=== PATIENT | female | born 1930 | race Caucasian/White ===

== ENCOUNTER 2016-12-14 12:45 | Emergency (ER) | payer OTHER ==
[2016-12-14 13:07] VITALS: TEMP 97.7; BMI 18.8
[2016-12-14] MEDS ORDERED: DIPHTH,PERTUSS(ACELL),TET 0.5 ML DISP.SYRIN IM ONE (13:10)
--- NOTE | 2016-12-14 14:07 | PDOC ---
*Physical Exam - Vital Signs Last Vital Signs Temp Pulse Resp BP Pulse Ox 97.7 F 81 18 158/68 100 12/14/16 13:01 12/14/16 13:01 12/14/16 13:01 12/14/16 13:01 12/14/16 13:01 ED Treatment Course - Medications Given in the ED: ED Medications Discontinued Medications Generic Name Dose Route Start Last Admin Trade Name Cassandra PRN Reason Stop Dose Admin Diphtheria/Tetanus/Acell Pertussis 0.5 ml 12/14/16 13:10 12/14/16 13:24 Boostrix - IM 12/14/16 13:11 0.5 ml .ONCE ONE Administration Medical Decision Making - Medical Decision Making 12/14/16 14:07 Pt seen by Midlevel Provider under my direct supervision Pt interviewed and examined Ancillary studies reviewed I agree with plan as outlined by Midlevel Provider *DC/Admit/Observation/Transfer Diagnosis at time of Disposition: Fall, Closed head injury, Scalp laceration - Discharge Dispostion Disposition: HOME - Referrals Referrals: STAFF,NOT ON [Primary Care Provider] - - Patient Instructions Printed Discharge Instructions: DI for Closed Head Injury Additional Instructions: -Keep the scalp clean and dry today -After that, you can wash gently with soap and water and pat dry -Apply bacitracin ointment once daily -Return here or see your primary care doctor in 3-5 days to have the marlena removed -Return sooner for redness/pus around the wound, fever, severe headache, nausea/ vomiting, change in vision, change in behavior/awareness, or any other concerning symptoms
--- NOTE | 2016-12-14 16:05 | PDOC ---
History of Present Illness - General Chief Complaint: Head/Neck problem Stated Complaint: FALL Time Seen by Provider: 12/14/16 12:51 History Source: Patient Exam Limitations: No Limitations - History of Present Illness Initial Comments: 12/14/16 16:05 CHIEF COMPLAINT: Fall HISTORY OF PRESENT ILLNESS: This is an 86 year old female with a history of HTN , depression, and CVA, on ASA 81mg daily (no other antiplatelets or anticoagulants) brought in by her aide after a fall. The aide reports that she heard a fall, and immediately found the patient awake on the floor. The patient has some expressive aphasia, but is able to give a history. She states that she fell from one step onto the floor, striking her head. She denies LOC, dizziness , nausea, visual changes, neck pain, or any other symptoms. She reports that she slipped and denies any dizziness, near syncope, or chest pain prior to the fall. Vital signs on arrival are notable for mild HTN at 158 systolic. REVIEW OF SYSTEMS: GENERAL/CONSTITUTIONAL: No fever or chills. No weakness. No weight change. HEAD, EYES, EARS, NOSE AND THROAT: No change in vision. No ear pain or discharge. No sore throat. CARDIOVASCULAR: No chest pain or palpitations. RESPIRATORY: No cough, wheezing, or shortness of breath. GASTROINTESTINAL: No nausea, vomiting, diarrhea or constipation. GENITOURINARY: No dysuria, frequency, or change in urination. MUSCULOSKELETAL: No joint or muscle swelling or pain. No neck or back pain. SKIN: No rash or easy bruising. NEUROLOGIC: No headache, vertigo, loss of consciousness, or loss of sensation. PSYCHIATRIC: No depression or anxiety. ENDOCRINE: No increased thirst. No abnormal weight change. HEMATOLOGIC/LYMPHATIC: No anemia, easy bleeding, or history of blood clots. ALLERGIC/IMMUNOLOGIC: No hives or skin allergy. No latex allergy. PHYSICAL EXAM: GENERAL: The patient is awake, alert, oriented x 2, in no acute distress. HEAD: 2.5 cm linear posterior scalp laceration. ENT: Pupils equal, round and reactive to light, extraocular movements intact, sclera anicteric, conjunctiva clear. Neck supple. LUNGS: Clear to auscultation bilaterally. Normal excursion. No respiratory distress or use of accessory muscles. CV: RRR, S1/S2, no MRG. Cap refill < 2 sec. ABDOMEN: Soft, non-distended, non-tender. EXTREMITIES: Normal range of motion of ankle, knee, hip, wrist, elbow, and shoulder joints. NEUROLOGICAL: Mild expressive aphasia. Normal speech, normal gait with assistance. CN II-XII grossly intact. PSYCH: Normal mood, normal affect. SKIN: Warm, dry, normal turgor, no rashes or lesions noted. Past History - Past Medical History Allergies/Adverse Reactions: Allergies Allergy/AdvReac Type Severity Reaction Status Date / Time Sulfa (Sulfonamide Allergy Severe Verified 12/14/16 13:00 Antibiotics) Home Medications: Ambulatory Orders Amlodipine Besylate 5 mg PO DAILY 12/14/16 Aspirin [ASA -] 81 mg PO DAILY 12/14/16 Lisinopril [Prinivil] 20 mg PO DAILY 12/14/16 Paroxetine HCl 20 mg PO DAILY 12/14/16 HTN: Yes Psychiatric Problems: Yes (MAJOR DEPRESSIVE DISORDER, GEN ANXIETY DISORDER) Other medical history: OSTEOPOROSIS - Psycho/Social/Smoking Cessation Hx Suicidal Ideation: No Smoking History: Never smoked *Physical Exam - Vital Signs Last Vital Signs Temp Pulse Resp BP Pulse Ox 97.7 F 81 18 158/68 100 12/14/16 13:01 12/14/16 13:01 12/14/16 13:01 12/14/16 13:01 12/14/16 13:01 Procedures - Laceration/Wound Repair Posterior Head Wound Length: to 2.5 cm Wound Explored: clean, no foreign body present Wound's Depth, Shape: into muscle, linear Irrigated w/ Saline: Yes Betadine Prep: Yes Wound Repaired With: [place] Number of Sutures: 6 ED Treatment Course - RADIOLOGY Radiology Studies Ordered: Category Date Time Status CERVICAL SPINE CT W/O CONTR [CT] Stat CT Scan 12/14/16 13:[address] WITHOUT CONTRAST [CT] Stat CT Scan 12/14/16 13:11 Completed - Medications Given in the ED: ED Medications Discontinued Medications Generic Name Dose Route Start Last Admin Trade Name Freq PRN Reason Stop Dose Admin Diphtheria/Tetanus/Acell Pertussis 0.5 ml 12/14/16 13:10 12/14/16 13:24 Boostrix - IM 12/14/16 13:11 0.5 ml .ONCE ONE Administration Medical Decision Making - Medical Decision Making 12/14/16 16:30 A/P: 86 year old female s/p mechanical fall with head trauma. 1. Head and C-spine CTs 2. Wound irrigation and laceration repair 3. Patient denies pain *DC/Admit/Observation/Transfer Diagnosis at time of Disposition: Fall Qualifiers: Encounter type: initial encounter Qualified Code(s): W19.XXXA - Unspecified fall, initial encounter Closed head injury Qualifiers: Encounter type: initial encounter Qualified Code(s): S09.90XA - Unspecified injury of head, initial encounter Laceration of scalp Qualifiers: Encounter type: initial encounter Qualified Code(s): S01.01XA - Laceration without foreign body of scalp, initial encounter - Discharge Dispostion Disposition: HOME Condition at time of disposition: Stable Admit: No - Patient Instructions Printed Discharge Instructions: DI for Closed Head Injury Additional Instructions: -Keep the scalp clean and dry today -After that, you can wash gently with soap and water and pat dry -Apply bacitracin ointment once daily -Return here or see your primary care doctor in 3-5 days to have the marlena removed -Return sooner for redness/pus around the wound, fever, severe headache, nausea/ vomiting, change in vision, change in behavior/awareness, or any other concerning symptoms
[2016-12-14 17:04] VITALS: BP 144/79; PULSE 74
== END 2016-12-14 17:04 | disposition home or self-care (01) ==
LOC: JER 12:45
PROC: 0HQ0XZZ Repair Scalp Skin, External Approach (ICD-10-PCS; principal; 2016-12-14)
PROC: 3E0234Z Introduction of Serum, Toxoid and Vaccine into Muscle, Percutaneous Approach (ICD-10-PCS; 2016-12-14)
DX: S01.01XA Laceration without foreign body of scalp, initial encounter (principal); W10.8XXA Fall (on) (from) other stairs and steps, initial encounter; Y93.89 Activity, other specified; Y92.018 Other place in single-family (private) house as the place of occurrence of the external cause; I10 Essential (primary) hypertension; F41.1 Generalized anxiety disorder; I69.920 Aphasia following unspecified cerebrovascular disease
CPT/HCPCS: 70450-TC; 72125-TC; 90715; 99284-25

== ENCOUNTER 2017-03-18 13:47 | Emergency (ER) | payer OTHER ==
[2017-03-18 14:28] VITALS: TEMP 98.5; BMI 17.9
--- NOTE | 2017-03-18 15:19 | PDOC ---
History of Present Illness <Janett Pires - Last Filed: 03/18/17 16:04> - General History Source: Patient, EMS, Other (skilled nursing case manager) Exam Limitations: No Limitations, Dementia (and aphasia) - History of Present Illness Initial Comments: 03/18/17 15:17 This 86yo F with a significant PMHx of a fall December 2016 s/p sutures on skull, primary aphasia and HTN presents due to a fall at 1:15 pm today. 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 She denies lightheadedness or dizziness before the event, denies syncope or LOC before or after event, and states she remembers the entirety of the event. States she fell backwards and hit her head against a granite and vinyl floor. Pt and executive director of nursing deny anti-coagulation use. Endorses long standing dizziness on exertion. Denies MURRY, lightheadedness, dizziness, vision changes, N/V, CP, new cough, palpitations, dysuria or pain on urination. Denies surgical hx. Denies tobacco or alcohol use. Occurred: reports: just prior to arrival Severity: reports: moderate Pain Location: reports: head Method of Injury: Yes: fall Loss of Consciousness: no loss of consciousness Associated Symptoms (Fall): headache (immediately after event), lightheadedness (immediately after event) <John Newton - Last Filed: 03/24/17 07:31> - General Chief Complaint: Injury Stated Complaint: FALL Time Seen by Provider: 03/18/17 14:33 Past History <Janett Pires - Last Filed: 03/18/17 16:04> - Travel Traveled outside of the country in the last 30 days: No Close contact w/someone who was outside of country & ill: No - Past Medical History HTN: Yes Psychiatric Problems: Yes (MAJOR DEPRESSIVE DISORDER, GEN ANXIETY DISORDER) Other medical history: EXPRESSIVE APHASIA. - Psycho/Social/Smoking Cessation Hx Anxiety: No Suicidal Ideation: No Smoking History: Never smoked Hx Alcohol Use: No Drug/Substance Use Hx: No Substance Use Type: None <John Newton - Last Filed: 03/24/17 07:31> - Past Medical History Allergies/Adverse Reactions: Allergies Allergy/AdvReac Type Severity Reaction Status Date / Time Sulfa (Sulfonamide Allergy Severe Verified 03/20/17 16:05 Antibiotics) Home Medications: Ambulatory Orders Amlodipine Besylate 5 mg PO DAILY 12/14/16 Aspirin [ASA -] 81 mg PO DAILY 12/14/16 Lisinopril [Prinivil] 20 mg PO DAILY 12/14/16 Paroxetine HCl 20 mg PO DAILY 12/14/16 Cephalexin Monohydrate [Keflex -] 500 mg PO BID #14 capsule 03/18/17 Trauma Specific PMHX - Complaint Specific PMHX Arthritis: Yes Back Injury: No Neck Injury: No Hx Sacro Iliac Joint Dysfunction: No <John Newton - Last Filed: 03/24/17 07:31> Review of Systems - Review of Systems Able to Perform ROS?: Yes Is the patient limited Cuban proficient: No Constitutional: No: Chills, Diaphoresis, Fever, Loss of Appetite, Weakness HEENTM: No: Eye Pain, Blurred Vision, Recent change in vision, Double Vision Respiratory: No: Cough, Shortness of Breath, SOB with Exertion, SOB at Rest, Wheezing, Productive cough Cardiac (ROS): Yes: Lightheadedness. No: Chest Pain, Irregular Heart Rate, Palpitations, Syncope, Chest Tightness ABD/GI: No: Constipated, Diarrhea, Nausea, Vomiting : No: Burning, Dysuria, Discharge, Frequency, Incontinence Musculoskeletal: Yes: Joint Pain Neurological: No: Headache (only after fall), Numbness, Paresthesia, Seizure <John Newton - Last Filed: 03/24/17 07:31> *Physical Exam - Vital Signs Last Vital Signs Temp Pulse Resp BP Pulse Ox 98.5 F 75 18 166/69 98 03/18/17 14:23 03/18/17 14:23 03/18/17 14:23 03/18/17 14:23 03/18/17 14:23 <Janett Pires - Last Filed: 03/18/17 16:04> - Vital Signs Last Vital Signs Temp Pulse Resp BP Pulse Ox 98.5 F 75 18 166/69 98 03/18/17 14:23 03/18/17 14:23 03/18/17 14:23 03/18/17 14:23 03/18/17 14:23 - Physical Exam General Appearance: Yes: Appropriately Dressed. No: Intoxicated HEENT: positive: EOMI, YUKI, Hearing Grossly Normal, Other (Parietal scalp laceration 6cm x 1cm.). negative: Pale Conjunctivae, Scleral Icterus (R), Scleral Icterus (L) Respiratory/Chest: positive: Lungs Clear, Normal Breath Sounds. negative: Respiratory Distress, Accessory Muscle Use, Rapid RR, Crackles, Rales, Rhonchi, Stridor, Wheezing, Dullness Cardiovascular: positive: Regular Rhythm, Regular Rate, S1, S2. negative: Murmur, Diastolic Murmur, Systolic Murmur, Irregularly Irregular, Irregular Gastrointestinal/Abdominal: positive: Normal Bowel Sounds, Flat, Soft. negative : Guarding, Rebound, Tenderness Musculoskeletal: positive: Normal Inspection. 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 negative: Facial Droop, Disoriented, Depressed Affect <John Newton - Last Filed: 03/24/17 07:31> Procedures - Laceration/Wound Repair Upper Medial Head Wound Length: 2.6 to 5.0 cm Wound Explored: clean, no foreign body present Wound's Depth, Shape: linear (Galea is not intact) Irrigated w/ Saline: Yes Betadine Prep: No (150mL normal saline irrigation) Anesthesia: 1% Lidocaine w/ Epi Wound Debrided: moderate Wound Repaired With: Sutures, Daniella Suture Size/Type: 4:0 Number of Sutures: 3 Layer Closure: Yes Deep Layer Suture Size/Type: 4:0, vycril Number of Deep Layer Sutures: 3 (4:0 vycril) Sterile Dressing Applied: Yes Splint Applied: No Sling Applied: No <John Newton - Last Filed: 03/24/17 07:31> Heart Score/ECG Review #1 ECG reviewed & interpreted by me at: 16:04 General ECG Interpretation: Sinus Rhythm, Normal Rate, Normal Intervals, No acute ischemic changes <Janett Pires - Last Filed: 03/18/17 16:04> #1 General ECG Interpretation: Sinus Rhythm, Normal Rate, Normal Intervals, No acute ischemic changes - ECG Impressions Normal ECG: Yes <John Newton - Last Filed: 03/24/17 07:31> ED Treatment Course - LABORATORY CBC & Chemistry Diagram: 03/18/17 15:16 03/18/17 15:16 - ADDITIONAL ORDERS Additional order review: 03/18/17 15:16 RBC 3.25 L MCV 96.4 H MCHC 34.0 RDW 13.8 MPV 7.8 Neutrophils % 73.5 Lymphocytes % 14.5 Monocytes % 7.3 Eosinophils % 2.8 Basophils % 1.9 - RADIOLOGY Radiology Studies Ordered: Category Date Time Status HEAD CT WITHOUT CONTRAST [CT] Stat CT Scan 03/18/17 13:55 Completed <Janett Pires - Last Filed: 03/18/17 16:04> - LABORATORY CBC & Chemistry Diagram: 03/18/17 18:55 03/18/17 15:16 <John Newton - Last Filed: 03/24/17 07:31> Medical Decision Making - Medical Decision Making 03/18/17 15:29 This 86yo F pt with a past medical hx of primary aphasia, HTN and fall in December 2016 s/p sutures presents to due a mechanical fall earlier today without LOC. Scalp Laceration 2/2 mechanical fall -CBC, CMP, PT/INR -CT head negative for intracranial hemorrhage or hematoma, acute CVA, or skull fracture noted -Boostrix given in this ER December 2016 -will wash out and staple wound R/O cardiac arrhythmia -EKG, troponin r/o UTI -Urinalysis 03/18/17 18:37 Laceration is fixed with deep sutures and daniella. Will repeat CBC to check Hgb. 03/18/17 19:05 I will give 1G Ancef in the ER and have d/c with 500 mg BID of keflex. <John Newton - Last Filed: 03/24/17 07:31> *DC/Admit/Observation/Transfer <Janett Pires - Last Filed: 03/18/17 16:04> - Attestations Physician Attestion: 03/24/17 07:25 I, Dr. John Newton, attest that this document has been prepared under my direction and personally reviewed by me in its entirety. I further attest, that it accurately reflects all work, treatment, procedures and medical decision -making performed by me. <John Newton - Last Filed: 03/24/17 07:31> Diagnosis at time of Disposition: Laceration - injury - Discharge Dispostion Disposition: HOME Condition at time of disposition: Stable - Prescriptions Prescriptions: Cephalexin Monohydrate [Keflex -] 500 mg PO BID #14 capsule - Referrals Referrals: Janae Lang MD [Primary Care Provider] - - Patient Instructions Printed Discharge Instructions: DI for Laceration Repair Additional Instructions: Keep area clean and dry for next 48 hours. Sutures to be removed in 14 days.
[2017-03-18 15:47] LABS: BASOPHIL 1.9 % (0-2.0); EOSINOPHIL 2.8 % (0-4.5); MCH 32.8 pg (25.7-33.7); MEAN CELL VOLUME 96.4 fl (80-96); MEAN PLT VOLUME 7.8 fl (7.5-11.1); NEUTROPHILS 73.5 % (42.8-82.8); PLATELET COUNT 199 K/MM3 (134-434); RDW 13.8 % (11.6-15.6); WHITE BLOOD COUNT 5.7 K/mm3 (4.0-10.0)
[2017-03-18 16:08] LABS: ALBUMIN 3.7 g/dl (3.4-5.0); ANION GAP 9 (8-16); BILIRUBIN,TOTAL 0.4 mg/dL (0.2-1.0); CO2 30 mmol/L (21-32); CREATININE 0.7 mg/dL (0.55-1.02); GLUCOSE,RANDOM 120 mg/dL (74-106); SGOT/AST 24 U/L (15-37); SGPT/ALT 22 U/L (12-78); TOT PROT 6.9 g/dl (6.4-8.2)
[2017-03-18 16:11] LABS: ALK PHOS 102 U/L (45-117); CPK 62 IU/L (26-192); TROPONIN I < 0.02 ng/ml (0.00-0.05)
[2017-03-18 16:44] LABS: INR 1.04 (0.82-1.09); PROTHROMBIN TIME (PATIENT) 11.5 SEC (9.98-11.88)
[2017-03-18] MEDS ORDERED: BACITRACIN 0.9 GM PACKET ONE (18:50)
[2017-03-18] MEDS ORDERED: CEFAZOLIN 1 GM in DEXTROSE 5%-WATER - 50 ML IVPB ONE (18:54)
[2017-03-18] MEDS ORDERED: CEFAZOLIN (PRE-DOCKED) 50 ML IVPB ONE (18:57)
[2017-03-18 19:01] LABS: MCH 33.3 pg (25.7-33.7); MCHC 34.8 g/dl (32.0-36.0); MEAN CELL VOLUME 95.6 fl (80-96); MEAN PLT VOLUME 7.7 fl (7.5-11.1); PLATELET COUNT 214 K/MM3 (134-434); WHITE BLOOD COUNT 7.8 K/mm3 (4.0-10.0)
--- NOTE | 2017-03-18 19:01 | PDOC ---
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 Pt states she slipped on water and fell and struck her head No preceding chest pain, shortness of breath, palpitations Patient's sustained a large, deep laceration to the top of her head. - Physicial Exam PE: 03/18/17 19:00 On examination: 10 cm Lac to the top of head Skull visible Galea injured RRR CTA - Medical Decision Making 03/18/17 19:00 Will do basic labs Tetanus UTD Galea repaired Scalp stapled Will discharge to home with pain medications 03/18/17 19:01 Laboratory Tests 03/18/17 03/18/17 15:16 15:16 WBC 5.7 Hgb 10.7 Hct 31.3 L Plt Count 199 BUN 24 H Creatinine 0.7 Creatine Kinase 62 Troponin I < 0.[address] Newton after copious irrigation Pt to be discharged to home if Hgb stable Tetanus UTD PT d/c on abx
[2017-03-18 19:53] VITALS: BP 150/64; PULSE 65
--- NOTE | 2017-03-18 20:52 | EKG ---
Test Reason : Blood Pressure : / mmHG Vent. Rate : 064 BPM Atrial Rate : 064 BPM P-R Int : 150 ms QRS Dur : 072 ms QT Int : 422 ms P-R-T Axes : 068 044 067 degrees QTc Int : 435 ms NORMAL SINUS RHYTHM NORMAL ECG NO PREVIOUS ECGS AVAILABLE CLINICAL CORRELATION IS RECOMMENDED Confirmed by REBECA JOYA MD ([id number]) on 03/18/2017 8:51:56 PM Referred By: Confirmed By:REBECA JOYA MD
== END 2017-03-18 20:26 | disposition home or self-care (01) ==
LOC: JER 13:47 → SUPCPDRO 13:47 → JER 20:26
PROC: 0JQ00ZZ Repair Scalp Subcutaneous Tissue and Fascia, Open Approach (ICD-10-PCS; principal; 2017-03-18)
PROC: 3E03329 Introduction of Other Anti-infective into Peripheral Vein, Percutaneous Approach (ICD-10-PCS; 2017-03-18)
DX: S01.01XA Laceration without foreign body of scalp, initial encounter (principal); W01.198A Fall on same level from slipping, tripping and stumbling with subsequent striking against other object, initial encounter; Z91.81 History of falling; Y93.H2 Activity, gardening and landscaping; Y92.007 Garden or yard of unspecified non-institutional (private) residence as the place of occurrence of the external cause; I10 Essential (primary) hypertension; R47.01 Aphasia; F33.9 Major depressive disorder, recurrent, unspecified; F41.1 Generalized anxiety disorder; M19.90 Unspecified osteoarthritis, unspecified site; Z88.2 Allergy status to sulfonamides; Z79.82 Long term (current) use of aspirin
CPT/HCPCS: 36415; 70450-TC; 80053; 84484; 85025; 85027; 85610; 93005; 93010; 99284-25

== ENCOUNTER 2017-03-20 16:04 | Emergency (ER) | payer OTHER ==
[2017-03-20 16:10] VITALS: BP 143/72; PULSE 71; TEMP 98; BMI 18.8
[2017-03-20] MEDS ORDERED: ACETAMINOPHEN 325 MG TABLET (FP) PO ONE (16:50)
--- NOTE | 2017-03-20 16:50 | PDOC ---
History of Present Illness - General Chief Complaint: Injury Stated Complaint: PCP SENT/ FALL INJURY Time Seen by Provider: 03/20/17 16:21 History Source: Patient, Other (home care scheduler) - History of Present Illness Occurred: reports: other Severity: reports: moderate Upper Extremity Pain Location: right: hand, wrist Method of Injury: reports: fell Past History - Past Medical History Allergies/Adverse Reactions: Allergies Allergy/AdvReac Type Severity Reaction Status Date / Time Sulfa (Sulfonamide Allergy Severe Verified 03/20/17 16:05 Antibiotics) Home Medications: Ambulatory Orders Amlodipine Besylate 5 mg PO DAILY 12/14/16 Aspirin [ASA -] 81 mg PO DAILY 12/14/16 Lisinopril [Prinivil] 20 mg PO DAILY 12/14/16 Paroxetine HCl 20 mg PO DAILY 12/14/16 Cephalexin Monohydrate [Keflex -] 500 mg PO BID #14 capsule 03/18/17 HTN: Yes Psychiatric Problems: Yes (MAJOR DEPRESSIVE DISORDER, GEN ANXIETY DISORDER) - Psycho/Social/Smoking Cessation Hx Anxiety: No Suicidal Ideation: No Smoking History: Never smoked Information on smoking cessation initiated: No Hx Alcohol Use: No Drug/Substance Use Hx: No Substance Use Type: None Review of Systems - Review of Systems Constitutional: No: Chills, Fever ABD/GI: No: Nausea, Vomiting Musculoskeletal: Yes: Joint Pain, Joint Swelling Neurological: No: Headache, Dizziness *Physical Exam - Vital Signs Last Vital Signs Temp Pulse Resp BP Pulse Ox 98.0 F 71 18 143/72 100 03/20/17 16:07 03/20/17 16:07 03/20/17 16:07 03/20/17 16:07 03/20/17 16:07 - Physical Exam General Appearance: Yes: Appropriately Dressed. No: Apparent Distress HEENT: positive: Normal Voice, Other (well healing scalp lac) Respiratory/Chest: negative: Respiratory Distress Extremity: positive: Other (swellign w/ ecchymosis to dorsum of R hand and wrist difusely extending into volar aspect of forearm, no snuffbox ttp, NVI) Integumentary: positive: Dry, Warm Neurologic: positive: Fully Oriented, Alert, Normal Mood/Affect Procedures - Splinting Splint Location: Right: Wrist Pre-Proc Neuro Vasc Exam: normal Hand-Made Type: orthoglass Splint Type: Yes: Sugar Tong Post-Proc Neuro Vasc Exam: normal [place] Bandage: 2", 4" Sling: Yes ED Treatment Course - RADIOLOGY Radiology Studies Ordered: Category Date Time Status WRIST W/HAND-RIGHT* [RAD] Stat Radiology 03/20/17 16:43 Ordered Medical Decision Making - Medical Decision Making 03/20/17 16:45 86 yo F, h/o HTN, here w/ pain and swelling to R hand/wrist s/p fall 2 days ago. Pt was seen in the ED here at [facility] for mechanical fall. Had CTH which was normal and had deep scalp laceration repaired. On keflex at home. States she was not experiencing any significant pain or swelling of her wrist so never reported wrist injury. Since home, symptoms have worsen. States no increased pain to lac site and no MURRY, dizziness, n/v. Not on blood thinners See exam R/o wrist fx s/p mec fall 2 days ago CTH in ED 2 days ago normal and s/p lac repair w/ well healing wound on wound check today -pain control -XR 03/20/17 17:29 Small avulsion fx to distal radius on XR. Case d/w Dr Acevedo who recommend sugar tong splint and for pt to f/u in 1 week. Marci Watkins ([phone]), the lead case manager at [facility], called to inform me that pt does not have 24 hr care at facility and that she would not be a safe discharge given that she is now wearing a splint to one arm. I told lead case manager that I will discuss this with ED SW and have SW contact her . 03/20/17 18:37 03/20/17 18:48 After further discussion with facility, ED psych social worker informed me that arrangement for visiting nurse will be set up for pt at home. SW supervisor forming and tempering and lead case manager at pt's facility aware. Pt safe to go home w/ discharge plan in place *DC/Admit/Observation/Transfer Diagnosis at time of Disposition: Wrist fracture Qualifiers: Encounter type: initial encounter Fracture type: closed Laterality: right Qualified Code(s): S62.101A - Fracture of unspecified carpal bone, right wrist, initial encounter for closed fracture - Discharge Dispostion Disposition: HOME Condition at time of disposition: Good - Referrals Referrals: STAFF,NOT ON [Primary Care Provider] - Sae Acevedo MD [Staff Physician] - - Patient Instructions Printed Discharge Instructions: Wrist Fracture Additional Instructions: You have a chip fracture of your right wrist that will heal on its own but can take several weeks A sugar tong splint was placed in ED. Please do not remove splint and follow up with Dr Acevedo of orthopedics next week Wear splint to assist you with elevating arm above your heart to help relieve swelling Take tylenol as needed for pain Our ED psych social worker was able to arrange a visiting nurse to come to your home to assist you as your arm heals
[2017-03-20] MEDS ORDERED: ACETAMINOPHEN 325 MG TABLET (FP) ONE (16:58)
== END 2017-03-20 18:51 | disposition home or self-care (01) ==
LOC: JERFT 16:04
PROC: 2W3CX1Z Immobilization of Right Lower Arm using Splint (ICD-10-PCS; principal; 2017-03-20)
DX: S62.101A Fracture of unspecified carpal bone, right wrist, initial encounter for closed fracture (principal); W18.30XA Fall on same level, unspecified, initial encounter; Y93.9 Activity, unspecified; Y92.9 Unspecified place or not applicable; I10 Essential (primary) hypertension; F33.9 Major depressive disorder, recurrent, unspecified; F41.1 Generalized anxiety disorder; Z79.82 Long term (current) use of aspirin; Z88.2 Allergy status to sulfonamides
CPT/HCPCS: 73110-TC-RT; 73130-TC-RT; 99281-25

== ENCOUNTER 2017-09-06 13:33 | Emergency (ER) | payer OTHER ==
--- NOTE | 2017-09-06 13:45 | PDOC ---
History of Present Illness - General History Source: Patient Exam Limitations: No Limitations - History of Present Illness Initial Comments: 09/06/17 14:08 The patient is a 87-year-old female with a significant past medical history of HTN, primary aphasia, and CVA, who presents to the emergency department with head injury s/p mechanical fall this afternoon at her birthday celebration. As per the patients friend, the patient tripped on her shoelaces and hit her head on the tile floor. Patient presents with a laceration to her right forehead that is not actively bleeding upon interview. As per friend, the patient had some wine today but is at her baseline mental status. Patient is a poor historian secondary to her condition. Tetanus is UTD. The patient denies chest pain, leg swelling. shortness of breath, and dizziness. Denies LOC or syncope. The patient denies fever, chills, nausea, vomit, diarrhea and constipation. The patient denies dysuria, frequency, urgency and hematuria. Allergies: sulfa Social History: No toxic habits reported <Jen Marx - Last Filed: 09/06/17 14:18> <Skyler Diallo - Last Filed: 09/06/17 16:01> <Breonna Yates - Last Filed: 09/06/17 16:51> - General Chief Complaint: Injury Stated Complaint: FALL Time Seen by Provider: 09/06/17 13:44 Past History <Jen Marx - Last Filed: 09/06/17 14:18> <Skyler Diallo - Last Filed: 09/06/17 16:01> - Past Medical History HTN: Yes Psychiatric Problems: Yes (MAJOR DEPRESSIVE DISORDER, GEN ANXIETY DISORDER) - Suicide/Smoking/Psychosocial Hx Smoking History: Never smoked Hx Alcohol Use: No Drug/Substance Use Hx: No Substance Use Type: None <Breonna Yates - Last Filed: 09/06/17 16:51> - Past Medical History Allergies/Adverse Reactions: Allergies Allergy/AdvReac Type Severity Reaction Status Date / Time Sulfa (Sulfonamide Allergy Severe Verified 09/06/17 13:53 Antibiotics) Home Medications: Ambulatory Orders Amlodipine Besylate 5 mg PO DAILY 12/14/16 Aspirin [ASA -] 81 mg PO DAILY 12/14/16 Lisinopril [Prinivil] 20 mg PO DAILY 12/14/16 Paroxetine HCl 20 mg PO DAILY 12/14/16 Review of Systems - Review of Systems Able to Perform ROS?: Yes Comments:: 09/06/17 14:14 GENERAL/CONSTITUTIONAL: No fever or chills. No weakness. HEAD, EYES, EARS, NOSE AND THROAT: No change in vision. No ear pain or discharge. No sore throat. (+) Head laceration. CARDIOVASCULAR: No chest pain or shortness of breath. RESPIRATORY: No cough, wheezing, or hemoptysis. GASTROINTESTINAL: No nausea, vomiting, diarrhea or constipation. GENITOURINARY: No dysuria, frequency, or change in urination. MUSCULOSKELETAL: No joint or muscle swelling or pain. No neck or back pain. SKIN: No rash NEUROLOGIC: No vertigo, loss of consciousness, or change in strength/sensation. ENDOCRINE: No increased thirst. No abnormal weight change. HEMATOLOGIC/LYMPHATIC: No anemia, easy bleeding, or history of blood clots. ALLERGIC/IMMUNOLOGIC: No hives or skin allergy. <Jen Marx - Last Filed: 09/06/17 14:18> *Physical Exam - Vital Signs Last Vital Signs Temp Pulse Resp BP Pulse Ox 97.6 F 72 18 150/52 100 09/06/17 13:47 09/06/17 13:47 09/06/17 13:47 09/06/17 13:47 09/06/17 13:47 - Physical Exam Comments: 09/06/17 14:18 GENERAL: Awake, alert, and fully oriented, in no acute distress HEAD: (+) Jagged stellate laceration to right forehead with avulsion to some skin. EYES: PERRLA, EOMI, sclera anicteric, conjunctiva clear ENT: Auricles normal inspection, hearing grossly normal, nares patent, oropharynx clear without exudates. Moist mucosa NECK: Normal ROM, supple, no lymphadenopathy, JVD, or masses LUNGS: Breath sounds equal, clear to auscultation bilaterally. No wheezes, and no crackles HEART: Regular rate and rhythm, normal S1 and S2, no murmurs, rubs or gallops ABDOMEN: Soft, nontender, normoactive bowel sounds. No guarding, no rebound. No masses EXTREMITIES: Normal range of motion, no edema. No clubbing or cyanosis. No cords, erythema, or tenderness. No lower extremity ttp. NEUROLOGICAL: No stepoffs or deformities, no midline deformities. (+) Left paraspinal ttp. Cranial nerves II through XII grossly intact. SKIN: Warm, Dry, normal turgor, no rashes or lesions noted. <Jen Marx - Last Filed: 09/06/17 14:18> - Vital Signs Last Vital Signs Temp Pulse Resp BP Pulse Ox 97.6 F 72 18 150/52 100 09/06/17 13:47 09/06/17 13:47 09/06/17 13:47 09/06/17 13:47 09/06/17 13:47 <Skyler Diallo - Last Filed: 09/06/17 16:01> Procedures - Laceration/Wound Repair Right Anterior Head Wound Length: 2.6 to 5.0 cm Wound Explored: clean, no foreign body present Wound's Depth, Shape: superficial, irregular, flap, stellate Irrigated w/ Saline: Yes Betadine Prep: No Anesthesia: 1% Lidocaine w/ Epi Wound Debrided: moderate Wound Repaired With: Sutures Suture Size/Type: 5:0 Number of Sutures: 9 Layer Closure: No Deep Layer Suture Size/Type: 5:0 Sterile Dressing Applied: Yes Splint Applied: No Sling Applied: No <Skyler Diallo - Last Filed: 09/06/17 16:01> ED Treatment Course - Medications Given in the ED: ED Medications Discontinued Medications Generic Name Dose Route Start Last Admin Trade Name Freq PRN Reason Stop Dose Admin Diphtheria/Tetanus/Acell Pertussis 0.5 ml 09/06/17 13:52 09/06/17 14:14 Boostrix - IM 09/06/17 13:53 0.5 ml .ONCE ONE Administration <Skyler Diallo - Last Filed: 09/06/17 16:01> Medical Decision Making - Medical Decision Making 09/06/17 13:54 a/p: 87yo female with mechanical fall-trip over shoelaces while at her birthday libertarian -hit the front of her head laceration to R forehead, on asa 81 no other anticoagulants no cantu at baseline MS no facial ttp no cervical spine midline ttp will obtain head and c spine ct will suture laceration unsure last tetanus - will update today 09/06/17 15:[address] Diallo - was present during procedure 09/06/17 16:49 cts without acute findings given po in the ED stable for d/c to home <Breonna Yates - Last Filed: 09/06/17 16:51> *DC/Admit/Observation/Transfer - Attestations Scribe Attestion: 09/06/17 14:19 Documentation prepared by Jen Marx, acting as medical records coder for Breonna Yates DO, MD/. <Jen Marx - Last Filed: 09/06/17 14:18> <Skyler Diallo - Last Filed: 09/06/17 16:01> - Discharge Dispostion Admit: No - Attestations Physician Attestion: 09/06/17 16:51 I, Dr. Breonna Yates DO, attest that this document has been prepared under my direction and personally reviewed by me in its entirety. I further attest, that it accurately reflects all work, treatment, procedures and medical decision -making performed by me. <Breonna Yates - Last Filed: 09/06/17 16:51> Diagnosis at time of Disposition: Closed head injury, Laceration - injury, Fall - Discharge Dispostion Disposition: HOME Condition at time of disposition: Stable - Referrals Referrals: Ric Miguel MD [Staff Physician] - - Patient Instructions Printed Discharge Instructions: DI for Closed Head Injury, DI for Laceration Repair -- Complex Suture Additional Instructions: Please make an appointment to follow up with your PMD. Please return to the ED with any further concerns. Please have the sutures removed in 1 week. Please take tylenol or motrin for pain. Please have the wound checked in 2 days. Please keep the wound clean and dry. You may was the wound in 24 hours with soap and water. Please pat to dry.
[2017-09-06] MEDS ORDERED: DIPHTH,PERTUSS(ACELL),TET 0.5 ML DISP.SYRIN IM ONE (13:52)
[2017-09-06 13:53] VITALS: BP 150/52; PULSE 72; TEMP 97.6; BMI 17.9
== END 2017-09-06 17:03 | disposition home or self-care (01) ==
LOC: JER 13:33
PROC: 3E0234Z Introduction of Serum, Toxoid and Vaccine into Muscle, Percutaneous Approach (ICD-10-PCS; principal; 2017-09-06)
PROC: 0JQ10ZZ Repair Face Subcutaneous Tissue and Fascia, Open Approach (ICD-10-PCS; 2017-09-06)
DX: S01.81XA Laceration without foreign body of other part of head, initial encounter (principal); W18.09XA Striking against other object with subsequent fall, initial encounter; Y93.89 Activity, other specified; Y92.018 Other place in single-family (private) house as the place of occurrence of the external cause; I69.820 Aphasia following other cerebrovascular disease; I10 Essential (primary) hypertension; F33.9 Major depressive disorder, recurrent, unspecified; F41.1 Generalized anxiety disorder
CPT/HCPCS: 12013; 70450-TC; 72125-TC; 90471; 90715; 99283-25

== ENCOUNTER 2017-09-08 11:09 | Inpatient (IN) | payer OTHER ==
[2017-09-08] MEDS ORDERED: ACETAMINOPHEN 325 MG TABLET (FP) PO ONE (11:58)
--- NOTE | 2017-09-08 11:58 | PDOC ---
History of Present Illness - General History Source: Patient, Care Provider Exam Limitations: No Limitations - History of Present Illness Initial Comments: 09/08/17 12:53 The patient is a 87 year old female, with a significant past medical history of HTN, primary aphasia, and CVA, who presents to the emergency department with R knee swelling. Patient was seen in the ED on 09/06/2017 for mechanical fall. Patient sustained a R orbit laceration which was sutured. As per discharge instructions, patient was instructed to return to the ED for follow up wound care. Upon evaluation, patients aide reports the patient fell twice more. Patient has R knee pain and swelling. Patient unable to bear weight and presents to the ED for further evaluation. Note:Patient with expressive aphasia and is at her baseline mental status per care provider. Patient denies chest pain, headache or dizziness. Patient denies fever, chills, abdominal pain, nausea, vomit, diarrhea or constipation. Patient denies dysuria, frequency, urgency or hematuria. Patient denies sick contacts or recent travel. Allergies: sulfa Past surgical history: None Social history: None PCP: None <Nena Gordon - Last Filed: 09/08/17 12:53> <Kiesha Olivera - Last Filed: 09/08/17 18:17> - General Chief Complaint: Pain, Acute Stated Complaint: RIGHT KNEE PAIN Time Seen by Provider: 09/08/17 11:46 Past History <Nena Gordon - Last Filed: 09/08/17 12:53> - Past Medical History COPD: No DVT: No HTN: Yes Psychiatric Problems: Yes (MAJOR DEPRESSIVE DISORDER, GEN ANXIETY DISORDER) - Suicide/Smoking/Psychosocial Hx Smoking History: Never smoked Have you smoked in the past 12 months: No Information on smoking cessation initiated: No Hx Alcohol Use: No Drug/Substance Use Hx: No Substance Use Type: None <Kiesha Olivera - Last Filed: 09/08/17 18:17> - Past Medical History Allergies/Adverse Reactions: Allergies Allergy/AdvReac Type Severity Reaction Status Date / Time Sulfa (Sulfonamide Allergy Severe Verified 09/08/17 11:25 Antibiotics) Home Medications: Ambulatory Orders Amlodipine Besylate 5 mg PO DAILY 12/14/16 Aspirin [ASA -] 81 mg PO DAILY 12/14/16 Lisinopril [Prinivil] 20 mg PO DAILY 12/14/16 Paroxetine HCl 20 mg PO DAILY 12/14/16 Review of Systems - Review of Systems Able to Perform ROS?: Yes Comments:: 09/08/17 12:55 GENERAL/CONSTITUTIONAL: No fever or chills. No weakness. HEAD, EYES, EARS, NOSE AND THROAT: No change in vision. No ear pain or discharge. No sore throat. GASTROINTESTINAL: No nausea, vomiting, diarrhea or constipation. GENITOURINARY: No dysuria, frequency, or change in urination. CARDIOVASCULAR: No chest pain or shortness of breath. RESPIRATORY: No cough, wheezing, or hemoptysis. MUSCULOSKELETAL: +R knee swelling and pain. No neck or back pain. SKIN: No rash NEUROLOGIC: No headache, vertigo, loss of consciousness, or change in strength/ sensation. ENDOCRINE: No increased thirst. No abnormal weight change. HEMATOLOGIC/LYMPHATIC: No anemia, easy bleeding, or history of blood clots. ALLERGIC/IMMUNOLOGIC: No hives or skin allergy. <Nena Gordon - Last Filed: 09/08/17 12:53> *Physical Exam - Vital Signs Last Vital Signs Temp Pulse Resp BP Pulse Ox 97 F L 70 18 153/63 100 09/08/17 11:21 09/08/17 11:21 09/08/17 11:21 09/08/17 11:21 09/08/17 11:21 <Nena Gordon - Last Filed: 09/08/17 12:53> - Vital Signs Last Vital Signs Temp Pulse Resp BP Pulse Ox 97 F L 70 18 153/63 100 09/08/17 11:21 09/08/17 11:21 09/08/17 11:21 09/08/17 11:21 09/08/17 11:21 - Physical Exam Comments: GENERAL: Awake, alert, and oriented to person and place, in no acute distress HEAD: +Laceration to R forehead with sutures in place, no signs of infection. No drainage from the wound. EYES: PERRLA, EOMI, sclera anicteric, conjunctiva clear ENT: Auricles normal inspection, hearing grossly normal, nares patent, oropharynx clear without exudates. Moist mucosa NECK: Normal ROM, supple, no lymphadenopathy, JVD, or masses LUNGS: Breath sounds equal, clear to auscultation bilaterally. No wheezes, and no crackles HEART: Regular rate and rhythm, normal S1 and S2, no murmurs, rubs or gallops ABDOMEN: Soft, nontender, normoactive bowel sounds. No guarding, no rebound. No masses EXTREMITIES: R knee with lateral tenderness to palpation, +Exquisite tenderness to the lateral portion of the patella. Dec ROM to R leg due to pain. Remainder of extremities with normal range of motion, no edema. No clubbing or cyanosis. No cords, erythema, or tenderness NEUROLOGICAL: Cranial nerves II through XII grossly intact. +Expressive aphasia. Motor and sensation intact. Unable to ambulate due to pain. SKIN: Warm, Dry, normal turgor, no rashes or lesions noted. <Kiesha Olivera - Last Filed: 09/08/17 18:17> ED Treatment Course - Medications Given in the ED: ED Medications Discontinued Medications Generic Name Dose Route Start Last Admin Trade Name Freq PRN Reason Stop Dose Admin Acetaminophen 650 mg 09/08/17 11:58 09/08/17 12:06 Tylenol - PO 09/08/17 11:59 650 mg ONCE ONE Administration <Nena Gordon - Last Filed: 09/08/17 12:53> - LABORATORY CBC & Chemistry Diagram: 09/08/17 15:18 09/08/17 15:18 <Kiesha Olivera - Last Filed: 09/08/17 18:17> Medical Decision Making - Medical Decision Making 09/08/17 15:19 Pt with patellar fracture, will require immobilization. Patient is non-weight bearing due to fracture, and is not able to walk with crutches due to advanced age (also due to history of recent fractures). Will obtain labs, urine. Plan for admission. <Kiesha Olivera - Last Filed: 09/08/17 18:17> *DC/Admit/Observation/Transfer - Attestations Scribe Attestion: 09/08/17 12:55 Documentation prepared by Nena Gordon, acting as medical office secretary for Kiesha Olivera MD <Nena Gordon - Last Filed: 09/08/17 12:53> - Discharge Dispostion Admit: Yes <Kiesha Olivera - Last Filed: 09/08/17 18:17> Diagnosis at time of Disposition: Unable to ambulate Patella fracture Qualifiers: Encounter type: initial encounter Fracture type: closed Fracture morphology: unspecified fracture morphology Fracture alignment: nondisplaced Laterality: right Qualified Code(s): S82.001A - Unspecified fracture of right patella, initial encounter for closed fracture - Discharge Dispostion Condition at time of disposition: Stable
[2017-09-08] MEDS ORDERED: ACETAMINOPHEN 325 MG TABLET (FP) ONE (12:03)
[2017-09-08 15:48] LABS: BASO % 0.8 % (0-2.0); EOS % 0.4 % (0-4.5); HEMATOCRIT 29.3 % (32.4-45.2); LYMPH % 11.4 % (8-40); MCH 32.8 pg (25.7-33.7); MCHC 34.2 g/dl (32.0-36.0); MEAN CELL VOLUME 95.8 fl (80-96); MEAN PLT VOLUME 8.4 fl (7.5-11.1); MONO % 15.2 % (3.8-10.2); NEUT % 72.2 % (42.8-82.8); PLATELET COUNT 192 K/MM3 (134-434); RBC 3.06 M/mm3 (3.60-5.2); RDW 14.1 % (11.6-15.6); WHITE BLOOD COUNT 8.9 K/mm3 (4.0-10.0)
[2017-09-08 16:16] LABS: ALBUMIN 3.2 g/dl (3.4-5.0); ALK PHOS 83 U/L (45-117); ANION GAP 8 (8-16); BILIRUBIN,TOTAL 0.7 mg/dL (0.2-1.0); BLOOD UREA NITROGEN 16 mg/dL (7-18); CALCIUM 9.2 mg/dL (8.5-10.1); CHLORIDE 101 mmol/L (98-107); CO2 29 mmol/L (21-32); CREATININE 0.8 mg/dL (0.55-1.02); GLUCOSE,RANDOM 91 mg/dL (74-106); POTASSIUM 3.3 mmol/L (3.5-5.1); SGOT/AST 17 U/L (15-37); SGPT/ALT 15 U/L (12-78); SODIUM 138 mmol/L (136-145); TOT PROT 6.7 g/dl (6.4-8.2)
[2017-09-08 16:51] LABS: PH,URINE 5.5 (5.0-8.0); URINE APPEARANCE CLEAR; URINE BILIRUBIN NEGATIVE (NEGATIVE); URINE BLOOD TRACE-LYSE (NEGATIVE); URINE COLOR LT. YELLOW; URINE GLUCOSE (UA) NEGATIVE (NEGATIVE); URINE KETONE NEGATIVE (NEGATIVE); URINE LEUK ESTERASE NEGATIVE (NEGATIVE); URINE NITRITE NEGATIVE (NEGATIVE); URINE UROBILINOGEN 0.2 mg/dL (0.2-1.0)
[2017-09-08 16:55] LABS: URINE PROTEIN 2+ (NEGATIVE)
[2017-09-08 17:07] LABS: EPI CELLS RARE /HPF (FEW); URINE MUCUS RARE
--- NOTE | 2017-09-08 21:21 | HP ---
Admitting History and Physical - Primary Care Physician PCP: Jhonny Zurita - Admission Chief Complaint: R knee swelling History of Present Illness: 87 year old female, with a significant past medical history of HTN, primary aphasia, and CVA, who presents to the emergency department with R knee swelling. Patient was seen in the ED on 09/06/2017 for mechanical fall. Patient sustained a R orbit laceration which was sutured. As per discharge instructions , patient was instructed to return to the ED for follow up wound care. Upon evaluation, patients aide reports the patient fell twice more. Patient has R knee pain and swelling. Patient unable to bear weight and presents to the ED for further evaluation. Note:Patient with expressive aphasia and is at her baseline mental status per care provider. 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) Cardiovascular: Yes: HTN - Smoking History Smoking history: Never smoked Have you smoked in the past 12 months: No - Alcohol/Substance Use Hx Alcohol Use: No Home Medications - Allergies Allergies/Adverse Reactions: Allergies Allergy/AdvReac Type Severity Reaction Status Date / Time Sulfa (Sulfonamide Allergy Severe Verified 09/08/17 11:25 Antibiotics) - Home Medications Home Medications: Ambulatory Orders Amlodipine Besylate 5 mg PO DAILY 12/14/16 Aspirin [ASA -] 81 mg PO DAILY 12/14/16 Lisinopril [Prinivil] 20 mg PO BID 12/14/16 Paroxetine HCl 20 mg PO DAILY 12/14/16 Physical Examination Vital Signs: Vital Signs Temperature 97 F L 09/08/17 11:21 Pulse Rate 70 09/08/17 11:21 Respiratory Rate 18 09/08/17 11:21 Blood Pressure 153/63 09/08/17 11:21 O2 Sat by Pulse Oximetry (%) 100 09/08/17 11:21 HENT: Yes: Other (suture R forehead bruise R eye) Neck: Yes: Supple Cardiovascular: Yes: Regular Rate and Rhythm Respiratory: Yes: CTA Bilaterally Gastrointestinal: Yes: Normal Bowel Sounds Extremities: Yes: Shortened (R leg), Other (R knee swollen) Neurological: Yes: Alert Labs: CBC, BMP 09/08/17 15:18 09/08/17 15:18 Problem List - Problems (1) Patella fracture Assessment/Plan: ortho consult prn pain meds PT eval Code(s): S82.009A - UNSP FRACTURE OF UNSP PATELLA, INIT FOR CLOS FX Qualifiers: Encounter type: initial encounter Fracture type: closed Fracture morphology: unspecified fracture morphology Fracture alignment: nondisplaced Laterality: right Qualified Code(s): S82.001A - Unspecified fracture of right patella, initial encounter for closed fracture (2) Unable to ambulate Assessment/Plan: PT eval for rehab Code(s): R26.2 - DIFFICULTY IN WALKING, NOT ELSEWHERE CLASSIFIED (3) Laceration - injury Assessment/Plan: face wounds are healing Code(s): KPM9987 - Assessment/Plan Laboratory Tests 09/08/17 09/08/17 09/08/17 15:18 15:18 16:40 WBC 8.9 RBC 3.06 L Hgb 10.0 L Hct 29.3 L MCV 95.8 MCH 32.8 MCHC 34.2 RDW 14.1 Plt Count 192 MPV 8.4 Neutrophils % 72.2 Lymphocytes % 11.4 D Monocytes % 15.2 H D Eosinophils % 0.4 D Basophils % 0.8 Sodium 138 Potassium 3.3 L Chloride 101 Carbon Dioxide 29 Anion Gap 8 BUN 16 Creatinine 0.8 Creat Clearance w eGFR > 60 Random Glucose 91 Calcium 9.2 Total Bilirubin 0.7 D AST 17 ALT 15 Alkaline Phosphatase 83 Total Protein 6.7 Albumin 3.2 L Urine Color Lt. yellow Urine Appearance Clear Urine pH 5.5 Ur Specific [place] 1.020 Urine Protein 2+ H Urine Glucose (UA) Negative Urine Ketones Negative Urine Blood Trace-lyse Urine Nitrite Negative Urine Bilirubin Negative Urine Urobilinogen 0.2 Ur Leukocyte Esterase Negative Urine WBC (Auto) 5 Urine RBC (Auto) 1 Ur Epithelial Cells Rare Urine Mucus Rare Active Medications Generic Name Dose Route Start Last Admin Trade Name Freq PRN Reason Stop Dose Admin Acetaminophen 650 mg 09/08/17 21:26 Tylenol - PO Q6H PRN FEVER Amlodipine Besylate 5 mg 09/09/17 10:00 Norvasc - PO DAILY TAMI Amlodipine Besylate 5 mg 09/08/17 22:45 Norvasc - PO 09/08/17 22:46 ONCE ONE Aspirin 81 mg 09/09/17 10:00 Asa - PO DAILY TAMI Heparin Sodium (Porcine) 5,000 unit 09/08/17 22:00 Heparin - SQ BID TAMI Lisinopril 20 mg 09/09/17 10:00 Prinivil PO DAILY TAMI Paroxetine HCl 20 mg 09/09/17 10:00 Paxil - PO DAILY TAMI
[2017-09-08] MEDS ORDERED: amLODIPine BESYLATE 5 MG TABLET (FP) PO ONE (22:45)
[2017-09-08] MEDS ORDERED: HYDROmorphone HCL CARPU-JECT 1 MG/1 ML DISP.SYRIN IVPB PRN (22:46)
[2017-09-08] MEDS: HEPARIN NA (PORCINE) 5,000 UNITS/ML 1ML VIAL SQ SCH (23:29)
[2017-09-08] MEDS: ACETAMINOPHEN 325 MG TABLET (FP) PO PRN (23:29)
[2017-09-09 00:44] VITALS: BMI 22.6
[2017-09-09 07:51] LABS: BASO % 0.7 % (0-2.0); HEMATOCRIT 28.3 % (32.4-45.2); HEMOGLOBIN 9.6 GM/dL (10.7-15.3); MCH 32.2 pg (25.7-33.7); MCHC 33.9 g/dl (32.0-36.0); MEAN CELL VOLUME 94.9 fl (80-96); MEAN PLT VOLUME 8.4 fl (7.5-11.1); MONO % 11.9 % (3.8-10.2); NEUT % 73.4 % (42.8-82.8); PLATELET COUNT 186 K/MM3 (134-434); RBC 2.98 M/mm3 (3.60-5.2); RDW 13.7 % (11.6-15.6); WHITE BLOOD COUNT 8.4 K/mm3 (4.0-10.0)
[2017-09-09 08:12] LABS: ALBUMIN 2.8 g/dl (3.4-5.0); ANION GAP 7 (8-16); BLOOD UREA NITROGEN 16 mg/dL (7-18); CHLORIDE 104 mmol/L (98-107); CO2 28 mmol/L (21-32); GLUCOSE,RANDOM 83 mg/dL (74-106); POTASSIUM 3.1 mmol/L (3.5-5.1); SODIUM 139 mmol/L (136-145)
[2017-09-09 08:17] LABS: ALK PHOS 78 U/L (45-117); BILIRUBIN,TOTAL 0.8 mg/dL (0.2-1.0); CREATININE 0.6 mg/dL (0.55-1.02); SGOT/AST 13 U/L (15-37); SGPT/ALT 15 U/L (12-78); TOT PROT 5.8 g/dl (6.4-8.2)
--- NOTE | 2017-09-09 09:25 | CONSULT ---
Consult Consult Specialty:: orthopedics - History of Present Illness History of Present Illness: 87y/o female c/o right knee pain x1 day. She fell and injured the right knee and since then has been unable to walk. She was seen in the ED and admitted. She also had a laceration sutured on her face. She c/o pain in the knee which is worse with movement and better with rest. Denies any pain in the hips. 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) Cardio/Vascular: Yes: HTN ...: No - Alcohol/Substance Use Hx Alcohol Use: No - Smoking History Smoking history: Never smoked Have you smoked in the past 12 months: No Home Medications - Allergies Allergies/Adverse Reactions: Allergies Allergy/AdvReac Type Severity Reaction Status Date / Time Sulfa (Sulfonamide Allergy Severe Verified 09/08/17 11:25 Antibiotics) - Home Medications Home Medications: Ambulatory Orders Amlodipine Besylate 5 mg PO DAILY 12/14/16 Aspirin [ASA -] 81 mg PO DAILY 12/14/16 Lisinopril [Prinivil] 20 mg PO DAILY 12/14/16 Paroxetine HCl 20 mg PO DAILY 12/14/16 Review of Systems - Review of Systems Constitutional: reports: No Symptoms Eyes: reports: No Symptoms HENT: reports: No Symptoms Neck: reports: No Symptoms Cardiovascular: reports: No Symptoms Respiratory: reports: No Symptoms Gastrointestinal: reports: No Symptoms Genitourinary: reports: No Symptoms Breasts: reports: No Symptoms Reported Musculoskeletal: reports: Extremity Pain, Joint Swelling Integumentary: reports: No Symptoms Neurological: reports: No Symptoms Endocrine: reports: No Symptoms Hematology/Lymphatic: reports: No Symptoms Psychiatric: reports: No Symptoms Physical Exam Vital Signs: Vital Signs Temperature 98.7 F 09/09/17 05:52 Pulse Rate 73 09/09/17 05:52 Respiratory Rate 18 09/09/17 05:52 Blood Pressure 120/55 09/09/17 05:52 O2 Sat by Pulse Oximetry (%) 97 09/08/17 22:30 Constitutional: Yes: Well Nourished, No Distress HENT: Yes: Normocephalic Musculoskeletal: Yes: Other (Right knee: Large knee effusion. Mild ecchmosis along the knee anteriorly. Tenderness along the patella. Mild diffuse tenderness along the joint spaces. Calf nontender. Compartments soft. NVID.) Labs: CBC, BMP 09/09/17 06:30 09/09/17 06:30
[2017-09-09] MEDS: ASPIRIN 81 MG CHEWABLE TABLETS PO SCH (11:39)
[2017-09-09] MEDS: LISINOPRIL 20 MG TABLET (FP) PO SCH (11:39)
[2017-09-09] MEDS: amLODIPine BESYLATE 5 MG TABLET (FP) PO SCH (11:39)
[2017-09-09] MEDS: PARoxetine HCL 20 MG TABLET (FP) PO SCH (11:39)
[2017-09-09] MEDS: HEPARIN NA (PORCINE) 5,000 UNITS/ML 1ML VIAL SQ SCH ×2 (11:39→21:04)
--- NOTE | 2017-09-09 15:25 | PN ---
Progress Note, Physician History of Present Illness: comfortable - Current Medication List Current Medications: Active Medications Acetaminophen (Tylenol -) 650 mg PO Q6H PRN PRN Reason: FEVER Last Admin: 09/08/17 23:29 Dose: 650 mg Amlodipine Besylate (Norvasc -) 5 mg PO DAILY [facility] Last Admin: 09/09/17 11:39 Dose: 5 mg Aspirin (Asa -) 81 mg PO DAILY [facility] Last Admin: 09/09/17 11:39 Dose: 81 mg Heparin Sodium (Porcine) (Heparin -) 5,000 unit SQ BID [facility] Last Admin: 09/09/17 11:39 Dose: 5,000 unit Hydromorphone HCl (Dilaudid Injection -) 1 mg IVPB Q3H PRN PRN Reason: PAIN Lisinopril (Prinivil) 20 mg PO DAILY [facility] Last Admin: 09/09/17 11:39 Dose: 20 mg Paroxetine HCl (Paxil -) 20 mg PO DAILY [facility] Last Admin: 09/09/17 11:39 Dose: 20 mg - Objective Vital Signs: Vital Signs Temperature 99.1 F 09/09/17 13:39 Pulse Rate 60 09/09/17 13:39 Respiratory Rate 18 09/09/17 10:00 Blood Pressure 127/61 09/09/17 13:39 O2 Sat by Pulse Oximetry (%) 97 09/08/17 22:30 Constitutional: Yes: No Distress HENT: Yes: Other (bruise and lacerations on face healing) Neck: Yes: Supple Cardiovascular: Yes: Regular Rate and Rhythm Respiratory: Yes: CTA Bilaterally Gastrointestinal: Yes: Normal Bowel Sounds Extremities: Yes: Other (RLEX in brace) Edema: RLE: 1+ Peripheral Pulses WNL: Yes Neurological: Yes: Alert, Oriented Labs: CBC, BMP 09/09/17 06:30 09/09/17 06:30 Problem List - Problems (1) Patella fracture Assessment/Plan: seen by ortho brace in place can be dc to rehab no plan for any surgery Code(s): S82.009A - UNSP FRACTURE OF UNSP PATELLA, INIT FOR CLOS FX Qualifiers: Encounter type: initial encounter Fracture type: closed Fracture morphology: unspecified fracture morphology Fracture alignment: nondisplaced Laterality: right Qualified Code(s): S82.001A - Unspecified fracture of right patella, initial encounter for closed fracture (2) Unable to ambulate Assessment/Plan: PT eval for rehab Code(s): R26.2 - DIFFICULTY IN WALKING, NOT ELSEWHERE CLASSIFIED (3) Laceration - injury Assessment/Plan: face wounds are healing Code(s): [id number] -
[2017-09-10] MEDS: amLODIPine BESYLATE 5 MG TABLET (FP) PO SCH (10:06)
[2017-09-10] MEDS: LISINOPRIL 20 MG TABLET (FP) PO SCH (10:06)
[2017-09-10] MEDS: PARoxetine HCL 20 MG TABLET (FP) PO SCH (10:06)
[2017-09-10] MEDS: ASPIRIN 81 MG CHEWABLE TABLETS PO SCH (10:06)
[2017-09-10] MEDS: HEPARIN NA (PORCINE) 5,000 UNITS/ML 1ML VIAL SQ SCH ×2 (10:07→21:15)
--- NOTE | 2017-09-10 10:59 | EKG ---
Test Reason : Blood Pressure : / mmHG Vent. Rate : 070 BPM Atrial Rate : 070 BPM P-R Int : 158 ms QRS Dur : 076 ms QT Int : 440 ms P-R-T Axes : 056 022 066 degrees QTc Int : 475 ms POOR DATA QUALITY, INTERPRETATION MAY BE ADVERSELY AFFECTED NORMAL SINUS RHYTHM NONSPECIFIC ST ABNORMALITY ABNORMAL ECG WHEN COMPARED WITH ECG OF 18-MAR-2017 15:47, NO SIGNIFICANT CHANGE WAS FOUND Confirmed by THIAGO SALDAÑA, CHING ([id number]) on 09/10/2017 10:58:59 AM Referred By: Confirmed By:CHING DAS MD
--- NOTE | 2017-09-10 11:56 | PN ---
Progress Note, Physician History of Present Illness: comfortable - Current Medication List Current Medications: Active Medications Acetaminophen (Tylenol -) 650 mg PO Q6H PRN PRN Reason: FEVER Last Admin: 09/08/17 23:29 Dose: 650 mg Amlodipine Besylate (Norvasc -) 5 mg PO DAILY [facility] Last Admin: 09/10/17 10:06 Dose: 5 mg Aspirin (Asa -) 81 mg PO DAILY [facility] Last Admin: 09/10/17 10:06 Dose: 81 mg Heparin Sodium (Porcine) (Heparin -) 5,000 unit SQ BID [facility] Last Admin: 09/10/17 10:07 Dose: 5,000 unit Hydromorphone HCl (Dilaudid Injection -) 1 mg IVPB Q3H PRN PRN Reason: PAIN Last Admin: 09/09/17 23:46 Dose: 1 mg Lisinopril (Prinivil) 20 mg PO DAILY [facility] Last Admin: 09/10/17 10:06 Dose: 20 mg Paroxetine HCl (Paxil -) 20 mg PO DAILY [facility] Last Admin: 09/10/17 10:06 Dose: 20 mg - Objective Vital Signs: Vital Signs Temperature 98.3 F 09/10/17 05:45 Pulse Rate 64 09/10/17 10:00 Respiratory Rate 20 09/10/17 10:00 Blood Pressure 103/49 09/10/17 10:00 O2 Sat by Pulse Oximetry (%) 97 09/09/17 21:00 Constitutional: Yes: No Distress HENT: Yes: Atraumatic Neck: Yes: Supple Cardiovascular: Yes: Regular Rate and Rhythm Respiratory: Yes: CTA Bilaterally Gastrointestinal: Yes: Normal Bowel Sounds Extremities: Yes: Other (Rlex brace) Edema: RLE: 1+ Neurological: Yes: Alert, Oriented Labs: CBC, BMP 09/09/17 06:30 09/09/17 06:30 Problem List - Problems (1) Patella fracture Assessment/Plan: ortho consult prn pain meds PT eval Code(s): S82.009A - UNSP FRACTURE OF UNSP PATELLA, INIT FOR CLOS FX Qualifiers: Encounter type: initial encounter Fracture type: closed Fracture morphology: unspecified fracture morphology Fracture alignment: nondisplaced Laterality: right Qualified Code(s): S82.001A - Unspecified fracture of right patella, initial encounter for closed fracture (2) Unable to ambulate Assessment/Plan: PT eval for rehab Code(s): R26.2 - DIFFICULTY IN WALKING, NOT ELSEWHERE CLASSIFIED (3) Laceration - injury Assessment/Plan: face wounds are healing Code(s): [id number] - Assessment/Plan dc to snf tomorrow
--- NOTE | 2017-09-10 11:58 | DS ---
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) Cardiovascular: Yes: Regular Rate and Rhythm Respiratory: Yes: CTA Bilaterally Gastrointestinal: Yes: Normal Bowel Sounds Extremities: Yes: Other (R serg in brace) Peripheral Pulses WNL: Yes Neurological: Yes: Alert, Oriented Labs: CBC, BMP 09/09/17 06:30 09/09/17 06:30 Discharge Summary Reason For Visit: FALL/FRACTURE OF PATELLA Current Active Problems Patella fracture (Acute) Unable to ambulate (Acute) Condition: Stable - Instructions - Home Medications Comprehensive Discharge Medication List: Ambulatory Orders Amlodipine Besylate 5 mg PO DAILY 12/14/16 Aspirin [ASA -] 81 mg PO DAILY 12/14/16 Lisinopril [Prinivil] 20 mg PO BID 12/14/16 Paroxetine HCl 20 mg PO DAILY 12/14/16 dc to snf
[2017-09-11 08:21] VITALS: BP 142/62; PULSE 78; TEMP 98.2
[2017-09-11] MEDS: ASPIRIN 81 MG CHEWABLE TABLETS PO SCH (09:26)
[2017-09-11] MEDS: ACETAMINOPHEN 325 MG TABLET (FP) PO PRN (09:26)
[2017-09-11] MEDS: LISINOPRIL 20 MG TABLET (FP) PO SCH (09:26)
[2017-09-11] MEDS: PARoxetine HCL 20 MG TABLET (FP) PO SCH (09:26)
[2017-09-11] MEDS: amLODIPine BESYLATE 5 MG TABLET (FP) PO SCH (09:26)
[2017-09-11] MEDS: HEPARIN NA (PORCINE) 5,000 UNITS/ML 1ML VIAL SQ SCH (09:27)
--- NOTE | 2017-09-11 16:55 | DS ---
Physical Examination Vital Signs: Vital Signs Temperature 98.2 F 09/11/17 08:00 Pulse Rate 78 09/11/17 08:00 Respiratory Rate 18 09/11/17 08:00 Blood Pressure 142/62 09/11/17 08:00 O2 Sat by Pulse Oximetry (%) 97 09/11/17 08:43 Constitutional: Yes: No Distress HENT: Yes: Atraumatic Neck: Yes: Supple Cardiovascular: Yes: Regular Rate and Rhythm Respiratory: Yes: CTA Bilaterally Gastrointestinal: Yes: Normal Bowel Sounds Extremities: Yes: Other (rlex in brace) Neurological: Yes: Alert, Oriented Labs: CBC, BMP 09/09/17 06:30 09/09/17 06:30 Discharge Summary Reason For Visit: FALL/FRACTURE OF PATELLA Condition: Stable - Instructions Disposition: [facility] - Home Medications Comprehensive Discharge Medication List: Ambulatory Orders Amlodipine Besylate 5 mg PO DAILY 12/14/16 Aspirin [ASA -] 81 mg PO DAILY 12/14/16 Lisinopril [Prinivil] 20 mg PO BID 12/14/16 Paroxetine HCl 20 mg PO DAILY 12/14/16 dc to snf
== END 2017-09-11 12:05 | DRG 563 ==
LOC: JER 11:09 → JERBED 18:17 → J6S 21:54
PROVIDERS: ADMIT Internal Medicine; ATTEND Internal Medicine
DX: S82.001A Unspecified fracture of right patella, initial encounter for closed fracture (principal); S01.81XA Laceration without foreign body of other part of head, initial encounter; I69.320 Aphasia following cerebral infarction; I10 Essential (primary) hypertension; W19.XXXA Unspecified fall, initial encounter; Y93.89 Activity, other specified; Y99.8 Other external cause status; R29.6 Repeated falls; Y92.89 Other specified places as the place of occurrence of the external cause
CPT/HCPCS: 12013; 36415; 70450-TC; 72125-TC; 73523-TC-FY; 73562-TC-RT-FY; 73700-TC-RT; 80053; 81003; 81015; 85025; 90471; 90715; 93005; 93010; 93970-TC; 97116-GP; 97161-GP; 99283-25; J1644

== ENCOUNTER 2019-05-15 10:42 | Day surgery (SDC) | payer OTHER ==
[2019-05-15 12:51] VITALS: BMI 27.5
[2019-05-15] MEDS ORDERED: FUROSEMIDE 10 MG/1 ML VIAL (4 ML VIAL) IVPUSH ONE ×3 (13:15→18:15)
[2019-05-15] MEDS ORDERED: FUROSEMIDE 40 MG/4 ML INJECTABLE VIAL IVPUSH ONE (18:15)
[2019-05-16 06:05] VITALS: BP 144/44; PULSE 78; TEMP 98.7
== END 2019-05-16 09:25 ==
LOC: FBLOOD 10:42 → FM/S 10:46 → FBLOOD 05-16 09:25
PROVIDERS: ATTEND Internal Medicine
PROC: 30233N1 Transfusion of Nonautologous Red Blood Cells into Peripheral Vein, Percutaneous Approach (ICD-10-PCS; principal; 2019-05-15)
PROC: 3E033GC Introduction of Other Therapeutic Substance into Peripheral Vein, Percutaneous Approach (ICD-10-PCS; 2019-05-15)
DX: D64.9 Anemia, unspecified (principal)
CPT/HCPCS: 36430; 36511; 96374; P9038; P9058